=== PATIENT | female | born 1985 | race Two or more races ===

== ENCOUNTER 2017-08-09 13:41 | Emergency (ER) | payer MEDICAID ==
[~2017-08-09] VITALS: Ht 160 cm; Wt 77.1 kg
[2017-08-09 13:47] VITALS: BP 115/77
== END 2017-08-09 16:26 | disposition home or self-care (01) ==
LOC: ER 13:41
DX: G89.29 Other chronic pain (principal); M54.5 Low back pain; M51.36 Other intervertebral disc degeneration, lumbar region